=== PATIENT | female | born 1980 | race Caucasian/White ===

== ENCOUNTER 2017-04-16 04:33 | Emergency (ER) | payer OTHER ==
[2017-04-16] MEDS ORDERED: AMOX/CLAV 875 MG/125 MG TABLET PO STA (04:42)
[2017-04-16] MEDS ORDERED: IBUPROFEN 600 MG TABLET PO STA (04:42)
--- NOTE | 2017-04-16 04:47 | ED Physician Documentation ---
PD HPI ANIMAL BITE - Stated complaint Stated Complaint: RT ARM,RT WRIST,RT SHOULDER PAIN - Chief complaint Chief Complaint: Laceration - History obtained from History obtained from: Patient - History of Present Illness Location of injury(ies): Abdomen, RUE, LUE, LLE, Multiple Details of the event: Dog, Well appearing, Immunized, Provoked, Animal can be observed Timing - onset: How many hours ago Timing - details: Abrupt onset Improved by: Immobilization Contributing factors: No: Immunocompromised Similar symptoms before: Has not had sx before Recently seen: Not recently seen - Additional information Additional information: Patient is a 36 year old female with no significant past medical history who is presenting to the emergency department after being bit by her dog. Their older dog attacked the puppy, and in trying to break up the fight the patient was bit/ scratched multiple times. the older dog is up to date with his shots, but the puppy has not been vaccinated. Review of Systems Constitutional: denies: Fever, Chills Eyes: denies: Loss of vision Ears: denies: Ear pain, Drainage/discharge Nose: denies: Rhinorrhea / runny nose, Congestion Throat: denies: Dental pain / toothache, Oral lesions / sores GI: denies: Nausea, Vomiting Skin: reports: Rash, Abrasion (s), Laceration (s) Musculoskeletal: reports: Extremity pain, Extremity swelling Neurologic: denies: Generalized weakness, Focal weakness, Numbness Immunocompromised: denies: Immunocompromised PD PAST MEDICAL HISTORY - Present Medications Home Medications: Ambulatory Orders Medication Instructions Recorded Confirmed Amox/Clav 875/125 [Augmentin] 1 each PO Q12H #14 tablet 04/16/17 - Allergies Allergies/Adverse Reactions: Allergies Allergy/AdvReac Type Severity Reaction Status Date / Time Sulfa (Sulfonamide AdvReac Rash Verified 04/16/17 04:45 Antibiotics) PD ED PE NORMAL - Vitals Vital signs reviewed: Yes - General General: Alert and oriented X 3 - HEENT HEENT: Atraumatic, PERRL, Moist mucous membranes - Neck Neck: Supple, no meningeal sign - Cardiac Cardiac: RRR, No murmur, No rub - Respiratory Respiratory: No respiratory distress, Clear bilaterally - Abdomen Abdomen: Soft, Non tender, Non distended - Neuro Neuro: Alert and oriented X 3, 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, No motor deficit, No sensory deficit, Normal speech - Psych Psych: Normal mood, Normal affect PD ED PE EXPANDED - Derm Derm: Abrasion (s), Laceration(s) (multiple scratch fry on patient's abdomen, and bilateral upper extremiteis with a puncture wound on rue ) Results - Vitals Vitals: Vital Signs - 24 hr 04/16/17 04:40 Temperature 36.6 C Heart Rate 114 H Respiratory 19 Rate Blood Pressure 148/104 H O2 Saturation 98 Oxygen O2 Source Room air PD MEDICAL DECISION MAKING - ED course Complexity details: reviewed old records, re-evaluated patient, considered differential, d/w patient, d/w family ED course: Patient was seen and examined at bedside. patient;s wounds were cleaned and patient was treated with augmentin and ibuprofen. both dogs were known and could be observed. patient required no further work up at this time and was stable for discharge with outpatient follow up. Departure - Departure Disposition: 01 Home, Self Care Clinical Impression: Dog bite of arm Condition: Good Instructions: ED Bite Dog Follow-Up: Guerrero Gant ARNP [Primary Care Provider] - As Needed Prescriptions: Amox/Clav 875/125 [Augmentin] 1 each PO Q12H #14 tablet Comments: Your symptoms today are being caused by a dog bite. You had your first dose of antibiotics today and will need to take them for the next 7 days. You should make sure you keep the wounds clean and dry. You should monitor for signs of infection and follow up with your pmd for those signs. You can take motrin or tylenol as needed for pain. You can also apply ice to the wounds as needed. You may return to the emergency department at any time for new, worsening or ucnontrollable symptoms.
[2017-04-16] MEDS ORDERED: AMOX/CLAV 875 MG/125 MG TABLET PO ONE (04:50)
[2017-04-16] MEDS ORDERED: IBUPROFEN 600 MG TABLET PO ONE (04:50)
[2017-04-16 04:52] VITALS: BP 148/104
== END 2017-04-16 05:15 | disposition home or self-care (01) ==
LOC: ED 04:33
DX: S61.551A Open bite of right wrist, initial encounter (principal); S41.151A Open bite of right upper arm, initial encounter; W54.0XXA Bitten by dog, initial encounter
CPT/HCPCS: 99283; A9270

== ENCOUNTER 2023-06-28 14:36 | Outpatient (CLI) | payer OTHER ==
--- NOTE | 2023-06-28 15:14 | Sleep Patient Instructions ---
Sleep Center Visit Summary - Patient Visit Information Reason for Visit: Initial consult for evaluation of sleep disordered breathing and other sleep issues. - Patient Instructions Instructions Attached: Sleep Study Home Monitor Additional Instructions: You will be completing a sleep study, either an in-lab polysomnography (PSG) or home sleep study (HST). You will follow-up in the sleep care office after the sleep study is completed to hear the results and talk about therapy, if needed. You will be called by our office staff to schedule this appointment, but you may contact us with any questions. - Clinic Information Contact: formerly [facility] [address] [place] [address] [email or web address] T: [phone]
--- NOTE | 2023-06-28 15:20 | SLEEP CARE CONSULTATION ---
Information from patient questionnaire entered by Mahi Romero. I have reviewed and concur with the information entered by Mahi Romero. This document represents the service I personally performed and the decisions made by me, Dottie Azul ARNP. History of Present Illness Service Date and Time: 06/28/2023 1436 Reason for Visit: New patient Chief Complaint: reports: Snoring, Other (DOCTOR SUGGESTED DUE TO WBC ) Date of Onset: 6 MONTHS Usual bedtime: 9PM Time it takes to fall asleep: LESS THAN 30MIN Snores at night: Yes Observed to quit breathing while asleep: No Sleeps alone due to snoring: No Number of times waking at night: 1 Reasons for waking at night: reports: Other (DOGS TYPICALLY). denies: Choking, Snoring, Gasping for air Toss, Turn, or Twitch while sleeping: Yes Recalls having dreams: Yes Usually gets out of bed at: 430-5AM Feels refreshed in the morning: Yes Morning headache: No (hx of migraines but not in morning) Sleepy or fatigued during the day: No Ever fallen asleep while driving: No Takes day naps: No Dreams during day naps: No Prior sleep studies: No Additional HPI information: I had the pleasure of seeing WILMA AVALOS today regarding the possibility of her having a sleep disorder. Her current complaint is an elevation in WBC as seen by doctor. She saw a hemotologist who told her that her elevated WBC could indicate that she has sleep apnea. She was then referred here. She has snored since she was little but no one has told her she stops breathing at night. She has been told her snore is loud. She states she has no problem falling asleep at night and will usually sleep through the night. If she wakes up, it is her dogs wanting to be let out of house. She states she wakes up feeling refreshed most days. She has good energy throughout the day and does not take naps. She states naps throw off her sleeping schedule. She has a history of diabetes, well controlled with A1c at 6.9. - Parasomnia Symptoms Ever been unable to move upon waking from sleep: No Walks in sleep: No Talks in sleep: No Ever acted out dreams in sleep: No Ever felt weak in the knees when startled or emotional: No Bothered by creepy, crawly, restless sensations in legs: Yes (happening for couple years; leg aching sensation; at night) Problems with memory or concentration: Yes (both, seems to be getting worse) Subjective Initial [place] Sleepiness Scale score: 8 (06/28/23) Past Medical History Past Medical History: reports: Diabetes, GERD Social History The patient's occupation is a [employer]. Patient is and lives in [place]. Have you smoked in the past 12 months: Yes Cigarettes per day (20/pack): 10 Years of smokin Smoking Pack Years: 10.0 Alcohol use: No Caffeine use: Yes Caffeine amount and frequency: 24OZ DAILY Family History Family history of sleep disordered breathing: No Family Hx Sleep Apnea: Father: Snoring Allergies and Home Medications Known drug allergies: Yes (sulfa antibx) Drug allergies reviewed: Yes Home medication list reviewed: Yes (see updated list in EMR) Allergy and home medication list: Allergies Sulfa (Sulfonamide Antibiotics) Adverse Reaction (Verified 06/27/23 14:16) Krista Review of Systems Weight gain over past 5 years: 20 Cardiovascular: denies: high blood pressure Respiratory: denies: shortness of breath Gastrointestinal: reports: heartburn Neurological: reports: headaches (occasional migraines) Psychiatric: denies: anxiety, depression Ear/Nose/Throat: denies: tonsillectomy Endocrine: denies: thyroid disease Immunologic: reports: sneezing, allergies to food or environment (seasonal allergies) Physical Exam Vital signs obtained and entered by: MAHI Milton MA Blood Pressure: 142/80 (LEFT ARM) Cuff size: long Heart Rate: 78 O2 Saturation: 97 Height: 5 ft 2 in Weight: 276 lb 12.8 oz Body Mass Index: 50.6 BMI Classification: Morbidly Obese Neck circumference: 17.5 Mouth and throat: narrow oropharynx Soft palate: long Hard palate: normal Uvula: normal Uvula visualization: 25% Mallampati Class III Tongue: enlarged in size with teeth fry on lateral edges Tonsils: 1+ Neck: normal w/o lymphadenopathy or thyromegaly Heart: regular rate and rhythm Lungs: clear bilaterally Impression and Plan 1. Suspected Obstructive Sleep Apnea-Hypopnea Syndrome, as suggested by a history of loud and irregular snoring and cognitive impairment. Narrow orophary nx and obesity are common predisposing factors for obstructive sleep apnea- hypopnea syndrome. I recommend proceeding to polysomnography to confirm the diagnosis and to assess severity. If the patient has significant sleep disordered breathing, a manual CPAP titration study will also be performed to find the optimal treatment pressure. I informed the patient of what the sleep studies involve and after some discussion, obtained agreement to proceed. The pathophysiology of obstructive sleep apnea-hypopnea syndrome was discussed with the patient and health risks of cardiovascular and cerebrovascular disease if not treated. 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 Patient agreed to plan. * Schedule polysomnography. * Avoid long distance driving or driving when feeling sleepy. * Avoid alcohol, sedative and muscle relaxant around bedtime. * Attempt to lose weight. * Review instructions provided by trained office staff on how to prepare for the sleep study. * Return for follow-up after sleep study completed. Counseling Topics: Weight loss health impact Visit Type: In Office Provider Statement: I spent 100% of the Face to Face Visit with the patient with greater than 50% spent counseling the patient and coordination of care.
[2023-06-28 15:28] VITALS: BP 142/80
== END 2023-06-28 14:37 | disposition home or self-care (01) ==
LOC: SC 14:36
PROVIDERS: ATTEND Nurse Practitioner Family
DX: R06.83 Snoring (principal); E11.9 Type 2 diabetes mellitus without complications; E66.01 Morbid (severe) obesity due to excess calories; Z68.43 Body mass index [BMI] 50.0-59.9, adult; F17.210 Nicotine dependence, cigarettes, uncomplicated
CPT/HCPCS: 99203; 99212

== ENCOUNTER 2023-08-21 14:25 | Outpatient (CLI) | payer OTHER | END 2023-08-21 14:26 | disposition home or self-care (01) | LOC: SC 14:25 | PROVIDERS: ATTEND Nurse Practitioner Family | DX: G47.33 Obstructive sleep apnea (adult) (pediatric) (principal); R09.02 Hypoxemia; E66.01 Morbid (severe) obesity due to excess calories; Z68.43 Body mass index [BMI] 50.0-59.9, adult | CPT/HCPCS: 95806 ==

== ENCOUNTER 2023-09-17 09:32 | Outpatient (CLI) | payer OTHER ==
--- NOTE | 2023-09-17 09:11 | SLEEP CARE CONSULTATION ---
Information from patient questionnaire entered by Mahi Romero. I have reviewed and concur with the information entered by Mahi Romero. This document represents the service I personally performed and the decisions made by , Dottie Azul ARNP. History of Present Illness Service Date and Time: 09/17/2023 0900 Initial [place] Sleepiness Scale score: 8 (06/28/23) Current [place] Sleepiness Scale score: 6 Additional HPI information: WILMA AVALOS returns via video telehealth visit for follow up and results of the recently performed home sleep study. The sleep study showed mild obstructive sleep apnea with an average AHI of 12 and marisol oxygen saturation of 85%. I explained the pathophysiology behind obstructive sleep apnea. We then spent quite a bit of time discussing different treatment options. For mild obstructive sleep apnea, surgery and oral appliance are alternatives to nasal CPAP therapy but in moderate or severe cases, nasal CPAP is the most effective and reliable treatment. I reviewed the impact of weight changes on sleep apnea and strongly recommended losing weight. After some discussion, the patient opted to go with the nasal CPAP therapy. Nasal autoCPAP set at 4-15 cmH20 will be ordered with rationale explained. A manual titration study will be ordered if unable to find optimal pressure with office adjustments. I explained how CPAP machine works and what to expect when using the machine. Using CPAP every night in order to get used to it was emphasized. Patient advised to put CPAP mask on before getting into bed so as not to fall asleep without CPAP. To assist acclimation to CPAP use, it could also be used for a short time during day while reading or watching TV. The patient was instructed to call the CPAP supplier to discuss any mechanical problem that may occur. If the mask given is uncomfortable or is difficult to keep on through the night even with adjustment, contact the CPAP supplier as many will replace with another mask style if notified before 30 days. If snoring or perceives is not getting enough air or too much air from the machine, notify this office. Patient does not drink alcohol. Patient was cautioned about risks of drowsy driving until sleepiness symptoms resolve. Patient denies drowsy driving. Sleep Study - Results Type of Sleep Study: Home sleep study (COMPLETED 08/21/23) Prior sleep studies: No Polysomnography/Home Sleep Study results: Physician Impression: The quality of the study is good. The length of the study is adequate (> 240 minutes). Please also see the tabulated and graphic data. 1. Obstructive Sleep Apnea-Hypopnea (ICD-10 G47.33), mild, with an AHI of 12.0 /hr and marisol SaO2 of 85%. During the study, the patient had 48 apneas (48 obstructive, 0 central, 0 mixed) and 34 hypopneas. The longest episode lasted 73.0 seconds. The respiratory events occurred more frequently during supine sleep (supine AHI was 33.3 and non-supine, 11.77). 2. Hypoxemia (ICD-10 R09.02), mild, with the lowest oxygen saturation of 85 % and 3.3 minutes with SaO2 under 90%. Baseline oxygen saturation was normal (Average oxygen saturation was 94%). Allergies and Home Medications Known drug allergies: Yes (as listed) Drug allergies reviewed: Yes Home medication list reviewed: Yes (Trulicity incrased to 1.5 mg) Allergy and home medication list: Allergies Sulfa (Sulfonamide Antibiotics) Adverse Reaction (Verified 09/16/23 08:59) Hives Review of Systems Review of systems same as previous: Yes (no changes) Physical Exam Vital signs obtained and entered by: DOTTIE HAAS Height: 5 ft 2 in Weight: 260 lb (per pt) Body Mass Index: 47.5 BMI Classification: Morbidly Obese Impression and Plan 1. Obstructive Sleep Apnea-Hypopnea Syndrome, mild, with lowest oxygen saturati on of 85%. Obviously this is the cause of the patients symptoms of unrefreshed sleep, and excessive daytime sleepiness. Positive pressure therapy could benefit diabetes and gastric reflux. As mentioned above, the patient will be started on nasal autoCPAP therapy with pressure set at 4-15 cmH2O. Compliance guidelines also reviewed. A copy of compliance guidelines will be given for reference at check out. Because the apnea is more severe supine, I instructed to avoid sleeping supine using pillow positioning until able to start CPAP use. 2. Hypoxemia, mild, with a marisol oxygen saturation of 85% and 3.3 minutes spent under 90%. Her baseline oxygen saturation was normal with an average oxygen saturation of 94%. 3. Obesity, unspecified. Currently patients BMI is 47.5. Obesity increases the risk of apnea, CPAP pressure requirements and overall health risks especially cardiovascular and diabetes. Thus patient is advised to lose weight. * Nasal auto CPAP therapy, pressure at 4-15 cm H2O. * Attempt to lose weight. * Avoid alcohol consumption near bedtime. * Avoid supine sleep until using CPAP. * The patient is again cautioned about driving until sleepiness completely resolves. * Return one month after CPAP obtained. I will assess response to therapy and compliance at that time. Counseling Topics: Sleeping position, Weight loss health impact Prescriptions: Auto CPAP Visit Type: Telehealth Video Video Type: Doximity Patient Location: Work Location of Provider: Office Patient agrees and consents to this telehealth visit type: Yes Patient agrees to have their insurance billed: Yes Time Spent with Patient (minutes): 20 Provider Statement: I spent 100% of the Telehealth Video Call with the patient with greater than 50% spent counseling the patient and coordination of care.
== END 2023-09-17 09:33 | disposition home or self-care (01) ==
LOC: SC 09:32
PROVIDERS: ATTEND Nurse Practitioner Family
DX: G47.33 Obstructive sleep apnea (adult) (pediatric) (principal); R09.02 Hypoxemia; E66.01 Morbid (severe) obesity due to excess calories; Z68.42 Body mass index [BMI] 45.0-49.9, adult

== ENCOUNTER 2024-02-06 07:55 | Emergency (ER) | payer OTHER ==
[2024-02-06 08:37] LABS: BASOPHILS % (AUTO) 0.3 %; EOSINOPHILS # (AUTO) 0.2 10^3/uL (0.0-0.7); EOSINOPHILS % (AUTO) 1.5 %; HCT - HEMATOCRIT 45.3 % (37.0-47.0); HGB - HEMOGLOBIN 13.9 g/dL (12.0-16.0); LYMPHOCYTES # (AUTO) 1.9 10^3/uL (1.5-3.5); LYMPHOCYTES % (AUTO) 13.7 %; MEAN CORPUSCULAR HEMOGLOBIN 26.8 pg (27.0-31.0); MEAN CORPUSCULAR HGB CONC 30.7 g/dL (32.0-36.0); MEAN CORPUSCULAR VOLUME 87.3 fL (81.0-99.0); MEAN PLATELET VOLUME 11.7 fL (7.9-10.8); MONOCYTES # (AUTO) 0.5 10^3/uL (0.0-1.0); MONOCYTES % (AUTO) 3.8 %; NEUTROPHILS % (AUTO) 80.3 %; PLT - PLATELET COUNT 303 10^3/uL (130-450); RED BLOOD COUNT 5.19 10^6/uL (4.20-5.40); RED CELL DISTRIBUTION WIDTH 14.3 % (12.0-15.0); WHITE BLOOD COUNT 13.7 x10^3/uL (4.8-10.8)
[2024-02-06 08:52] LABS: ALBUMIN 4.3 g/dL (3.2-5.5); ALBUMIN/GLOBULIN RATIO 1.5 (1.0-2.2); BILIRUBIN,TOTAL 0.3 mg/dL (0.2-1.0); CREATININE 0.7 mg/dL (0.6-1.3); POTASSIUM 4.6 mmol/L (3.5-4.5); TOTAL PROTEIN 7.2 g/dL (6.4-8.9)
[2024-02-06 09:23] VITALS: O2SAT 97
--- NOTE | 2024-02-06 11:05 | ED Physician Documentation ---
PD HPI ABD PAIN - Stated complaint Stated Complaint: Abd pain - Chief complaint Chief Complaint: Abd Pain - History obtained from History obtained from: Patient - Additional information Additional information: Pt comes to the ED with CC of epigastric pain radiating into her chest that started today. She states it is an achy, squeezy pain. No SOB, nausea, diaphoresis, or lightheadedness. She has not been ill with anything lately. Occasional heartburn/indigestion. No other complaints at this time. The pt is a diabetic and also has hypertension. No prior episodes like this. Max pain 06/03, somewhat better now. 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 : None HEENT: None Psych: None Musculoskeletal: None Derm: None - Past Surgical History Past Surgical History: Yes General: Appendectomy /LUNCHEONETTE MANAGER: section - Present Medications Home Medications: Ambulatory Orders Medication Instructions Recorded Confirmed Cholecalciferol [Vitamin D3] 5,000 unit PO DAILY 11/13/22 02/06/24 Pantoprazole [Protonix] 40 mg PO DAILY 11/13/22 02/06/24 Propranolol [Inderal] 80 mg PO DAILY 11/13/22 02/06/24 Cetirizine [ZyrTEC] See Rx Instructions .ROUTE .COMPLEX 06/28/23 02/06/24 Dulaglutide [Trulicity] See Rx Instructions .ROUTE .COMPLEX 06/28/23 02/06/24 - Allergies Allergies/Adverse Reactions: Allergies Allergy/AdvReac Type Severity Reaction Status Date / Time Sulfa (Sulfonamide AdvReac Hives Verified 02/06/24 08:14 Antibiotics) - Social History Does the pt smoke?: Yes Smoking Status: Current every day smoker Does the pt drink ETOH?: No Does the pt have substance abuse?: No - Immunizations Immunizations are current?: No - POLST Patient has POLST: No PD ED PE NORMAL - Vitals Vital signs reviewed: Yes - General General: Alert and oriented X 3, No acute distress, Well developed/nourished - HEENT HEENT: Atraumatic, PERRL, EOMI, Moist mucous membranes - Neck Neck: Supple, no meningeal sign - Cardiac Cardiac: RRR, No murmur - Respiratory Respiratory: No respiratory distress, Clear bilaterally - Abdomen Abdomen: Soft, Non distended, Other (Mild epigastric tenderness.) - Derm Derm: Normal color, Warm and dry, No rash - Extremities Extremities: No deformity, No edema, No calf tenderness / cord - Neuro Neuro: Alert and oriented X 3 - Psych Psych: Normal mood, Normal affect Results - Vitals Vitals: Oxygen O2 Source Room air - EKG (time done) 0823 EKG releavant findings:: EKG personally interpreted by author of this note. Relevant findings are: Rate: Rate (enter#) (70) Rhythm: NSR Dawson: Normal Intervals: Normal [place] QRS: Normal Ischemia: Normal ST segments Compare to prior EKG: Old EKG unavailable Computer interpretation: Agree with computer - Labs Labs: Laboratory Tests 02/06/24 02/06/24 02/06/24 08:33 08:33 08:33 WBC 13.7 H RBC 5.19 Hgb 13.9 Hct 45.3 MCV 87.3 MCH 26.8 L MCHC 30.7 L RDW 14.3 Plt Count 303 MPV 11.7 H Neut # (Auto) 11.0 H Lymph # (Auto) 1.9 Pershing # (Auto) 0.5 Eos # (Auto) 0.2 Baso # (Auto) 0.0 Absolute Nucleated RBC 0.00 Nucleated RBC % 0.0 Sodium 135 Potassium 4.6 H Chloride 103 Carbon Dioxide 27 Anion Gap 5.0 L BUN 18 Creatinine 0.7 Estimated GFR (MDRD) 91 Glucose 139 H Calcium 10.0 Total Bilirubin 0.3 AST 13 ALT 21 Alkaline Phosphatase 78 Troponin I High Sens < 2.3 L Total Protein 7.2 Albumin 4.3 Globulin 2.9 Albumin/Globulin Ratio 1.5 Lipase 15 02/06/24 10:24 WBC RBC Hgb Hct MCV MCH MCHC RDW Plt Count MPV Neut # (Auto) Lymph # (Auto) Pershing # (Auto) Eos # (Auto) Baso # (Auto) Absolute Nucleated RBC Nucleated RBC % Sodium Potassium Chloride Carbon Dioxide Anion Gap BUN Creatinine Estimated GFR (MDRD) Glucose Calcium Total Bilirubin AST ALT Alkaline Phosphatase Troponin I High Sens < 2.3 L Total Protein Albumin Globulin Albumin/Globulin Ratio Lipase PD Medical Decision Making - ED course Complexity details: reviewed results, re-evaluated patient, considered differential, d/w patient ED course: The pt was worked up with EKG, which normal, and labs, which were unremarkable, including serial troponins. The pt was feeling better, and I felt she was stable for d/c home. No emergent condition was identified today. I have advised her to call her PCP's office as soon as possible to set up a follow-up appointment to discuss stress test. Departure - Departure Disposition: Home, Self Care Clinical Impression: Abdominal pain Qualifiers: Abdominal location: upper abdomen, unspecified Qualified Code(s): R10.10 - Upper abdominal pain, unspecified Chest pain Qualifiers: Chest pain type: unspecified Qualified Code(s): R07.9 - Chest pain, unspecified Condition: Stable Instructions: ED Abdominal Pain Female Non-Specific Abdominal Pain, ED Chest Pain Atypical Unkn Cause Comments: Your tests look great today, including EKG, basic labs, and 2 sets of cardiac enzymes. There is no evidence whatsoever of a heart attack at this time. As we discussed, diabetes does put you at some increased risk for this, but, and it may be helpful to follow-up with your primary doctor for discussion about having a possible stress test. You should also talk to your doctor about potentially having endoscopy to get a direct look at your esophagus and stomach and see if there is any inflammation or preulcer condition. Please continue your Protonix as usual. If you develop severe chest pain with shortness of breath, sweating and nausea, please return to the emergency department. Forms: PCP List Discharge Date/Time: 02/06/24 11:11
[2024-02-06 11:20] VITALS: BP 148/60
== END 2024-02-06 11:11 | disposition home or self-care (01) ==
LOC: ED 07:55
DX: R10.13 Epigastric pain (principal); R07.9 Chest pain, unspecified; I10 Essential (primary) hypertension; E11.9 Type 2 diabetes mellitus without complications; Z79.85 Long-term (current) use of injectable non-insulin antidiabetic drugs; F17.200 Nicotine dependence, unspecified, uncomplicated
CPT/HCPCS: 36415; 80053; 83690; 84484; 85025; 93005; 99283

== ENCOUNTER 2024-06-03 20:58 | Emergency (ER) | payer OTHER ==
[2024-06-03 21:09] VITALS: O2SAT 100
[2024-06-03 21:26] LABS: BASOPHILS # (AUTO) 0.1 10^3/uL (0.0-0.1); BASOPHILS % (AUTO) 0.4 %; EOSINOPHILS # (AUTO) 0.4 10^3/uL (0.0-0.7); EOSINOPHILS % (AUTO) 2.1 %; HCT - HEMATOCRIT 42.4 % (37.0-47.0); HGB - HEMOGLOBIN 12.8 g/dL (12.0-16.0); LYMPHOCYTES # (AUTO) 3.3 10^3/uL (1.5-3.5); LYMPHOCYTES % (AUTO) 19.6 %; MEAN CORPUSCULAR HEMOGLOBIN 26.8 pg (27.0-31.0); MEAN CORPUSCULAR HGB CONC 30.2 g/dL (32.0-36.0); MEAN CORPUSCULAR VOLUME 88.9 fL (81.0-99.0); MEAN PLATELET VOLUME 12.3 fL (7.9-10.8); MONOCYTES # (AUTO) 0.8 10^3/uL (0.0-1.0); MONOCYTES % (AUTO) 4.9 %; NEUTROPHILS # (AUTO) 12.2 10^3/uL (1.5-6.6); NEUTROPHILS % (AUTO) 72.5 %; PLT - PLATELET COUNT 289 10^3/uL (130-450); RED BLOOD COUNT 4.77 10^6/uL (4.20-5.40); RED CELL DISTRIBUTION WIDTH 14.8 % (12.0-15.0); WHITE BLOOD COUNT 16.9 x10^3/uL (4.8-10.8)
[2024-06-03 21:41] LABS: ALBUMIN 4.4 g/dL (3.2-5.5); ALBUMIN/GLOBULIN RATIO 1.4 (1.0-2.2); BILIRUBIN,TOTAL 0.3 mg/dL (0.2-1.0); CALCIUM 9.9 mg/dL (8.5-10.3); CREATININE 0.8 mg/dL (0.6-1.3); POTASSIUM 4.2 mmol/L (3.5-4.5); TOTAL PROTEIN 7.5 g/dL (6.4-8.9)
--- NOTE | 2024-06-03 22:07 | ED Physician Documentation ---
PD HPI ABD PAIN - Stated complaint Stated Complaint: ABD PX - Chief complaint Chief Complaint: Abd Pain - History obtained from History obtained from: Patient - Additional information Additional information: HPI from patient. Patient complains of abdominal pain, across the upper abdomen and then predominantly epigastric, radiates around right flank to back. Pain began approximately 6 PM this evening shortly after finishing her dinner. She has had very similar episodes over the past 2 to 3 months. She says she has seen her PCP but due to PCP leaving and waiting for her new PCP to evaluate her, no testing has been undertaken as of yet for this pain. Denies nausea, vomiting, fever. No past surgical history. Review of Systems Constitutional: denies: Fever, Chills, Sweats Cardiac: reports: Reviewed and negative Respiratory: reports: Reviewed and negative GI: reports: Abdominal Pain. denies: Nausea, Vomiting, Constipation, Diarrhea : denies: Dysuria, Frequency PD PAST MEDICAL HISTORY - Past Medical History Past Medical History: Yes Cardiovascular: Hypertension Respiratory: Asthma Neuro: None Endocrine/Autoimmune: None GI: None FOUNDER AND PRESIDENT: None : None HEENT: None Psych: None Musculoskeletal: None Derm: None - Past Surgical History Past Surgical History: Yes General: Appendectomy /FOUNDER AND PRESIDENT: section - Present Medications Home Medications: Ambulatory Orders Medication Instructions Recorded Confirmed Cholecalciferol [Vitamin D3] 5,000 unit PO DAILY 11/13/22 02/06/24 Pantoprazole [Protonix] 40 mg PO DAILY 11/13/22 02/06/24 Propranolol [Inderal] 80 mg PO DAILY 11/13/22 02/06/24 Dulaglutide [Trulicity] See Rx Instructions .ROUTE .COMPLEX 06/28/23 02/06/24 Loratadine [Claritin] 10 mg PO DAILY 06/03/24 Ondansetron Odt [Zofran Odt] 4 mg TL Q6H PRN #14 tablet 06/04/24 Oxycodone HCl/Acetaminophen 1 - 2 each PO Q6H PRN #14 tablet 06/04/24 [Percocet 5-325 mg Tablet] - Allergies Allergies/Adverse Reactions: Allergies Allergy/AdvReac Type Severity Reaction Status Date / Time Sulfa (Sulfonamide AdvReac Hives Verified 06/03/24 21:09 Antibiotics) - Social History Does the pt smoke?: Yes Smoking Status: Current every day smoker Does the pt drink ETOH?: No Does the pt have substance abuse?: No - Immunizations Immunizations are current?: No - POLST Patient has POLST: No PD ED PE NORMAL - Vitals Vital signs reviewed: Yes - General General: Alert and oriented X 3, No acute distress, Well developed/nourished - Cardiac Cardiac: RRR, No murmur - Respiratory Respiratory: No respiratory distress, Clear bilaterally - Abdomen Abdomen: Soft, Non distended, Other (mild TTP across upper abdomen, most pronounced in epigastrium; no rebound nor guarding) - Derm Derm: Normal color, Warm and dry, No rash Results - Vitals Vitals: Vital Signs - 24 hr 06/03/24 06/03/24 06/04/24 21:00 23:08 00:55 Temperature 36.1 C L 36.5 C 36.5 C Heart Rate 77 70 72 Respiratory 15 16 16 Rate Blood Pressure 167/85 H 150/80 H 156/79 H O2 Saturation 100 100 100 Oxygen O2 Source Room air - Labs Labs: Laboratory Tests 06/03/24 06/03/24 06/03/24 21:00 21:00 21:20 WBC 16.9 H RBC 4.77 Hgb 12.8 Hct 42.4 MCV 88.9 MCH 26.8 L MCHC 30.2 L RDW 14.8 Plt Count 289 MPV 12.3 H Neut # (Auto) 12.2 H Lymph # (Auto) 3.3 Rankin # (Auto) 0.8 Eos # (Auto) 0.4 Baso # (Auto) 0.1 Absolute Nucleated RBC 0.00 Nucleated RBC % 0.0 Sodium Potassium Chloride Carbon Dioxide Anion Gap BUN Creatinine Estimated GFR (MDRD) Glucose Calcium Total Bilirubin AST ALT Alkaline Phosphatase Total Protein Albumin Globulin Albumin/Globulin Ratio Lipase Urine Color YELLOW Urine Clarity CLEAR Urine pH 6.0 Ur Specific [place] 1.025 Urine Protein NEGATIVE Urine Glucose (UA) NEGATIVE Urine Ketones 15 H Urine Occult Blood SMALL H Urine Nitrite NEGATIVE Urine Bilirubin NEGATIVE Urine Urobilinogen 1 (NORMAL) Ur Leukocyte Esterase NEGATIVE Urine RBC 0-5 Urine WBC 0-3 Ur Squamous Epith Cells FEW Squamous Urine Bacteria Rare Ur Microscopic Review INDICATED Urine Culture Comments NOT INDICATED Urine HCG, Qual NEGATIVE 06/03/24 21:20 WBC RBC Hgb Hct MCV MCH MCHC RDW Plt Count MPV Neut # (Auto) Lymph # (Auto) Rankin # (Auto) Eos # (Auto) Baso # (Auto) Absolute Nucleated RBC Nucleated RBC % Sodium 136 Potassium 4.2 Chloride 103 Carbon Dioxide 27 Anion Gap 6.0 BUN 19 Creatinine 0.8 Estimated GFR (MDRD) 78 L Glucose 142 H Calcium 9.9 Total Bilirubin 0.3 AST 17 ALT 22 Alkaline Phosphatase 85 Total Protein 7.5 Albumin 4.4 Globulin 3.1 Albumin/Globulin Ratio 1.4 Lipase 30 Urine Color Urine Clarity Urine pH Ur Specific [place] Urine Protein Urine Glucose (UA) Urine Ketones Urine Occult Blood Urine Nitrite Urine Bilirubin Urine Urobilinogen Ur Leukocyte Esterase Urine RBC Urine WBC Ur Squamous Epith Cells Urine Bacteria Ur Microscopic Review Urine Culture Comments Urine HCG, Qual - Rads (name of study) RUQ US Relevant Findings:: Prelim report reviewed, See rad report PD Medical Decision Making - ED course Complexity details: reviewed results, re-evaluated patient, considered differential, d/w patient ED course: Leukocytosis (WBC 16.9) on otherwise unremarkable CBC. Normal ER abdominal panel, including LFTs and lipase, with insignificant exception of hyperglycemia (glucose 142). H&P are suggestive of biliary colic, my bedside ultrasound shows 2 gallstones and a confirmatory ultrasound is undertaken by the middle school science teacher; the radiologist's interpretation of the records technician's study is "cholelithiasis with wall thickening, but absent pericholecystic fluid. Findings are equivocal for acute cholecystitis." Results d/w patient, return precautions reviewed. I advised her to seek follow up with general surgery (contact information for the on-call surgeon for [facility] (Dr. Chapa) provided in d/c instructions). Patient declined analgesics throughout ED stay, but agrees with prescriptions for percocet and ondansetron (these are electronically submitted to patient's pharmacy of choice). Departure - Departure Disposition: 01 Home, Self Care Clinical Impression: Biliary colic Condition: Good Instructions: ED Gallstone W Biliary Colic Follow-Up: Desiree Chapa MD [Provider Admit Priv/Credential] - Prescriptions: Oxycodone HCl/Acetaminophen [Percocet 5-325 mg Tablet] 1 - 2 each PO Q6H PRN #14 tablet PRN Reason: pain Ondansetron Odt [Zofran Odt] 4 mg TL Q6H PRN #14 tablet PRN Reason: Nausea / Vomiting Comments: The ultrasound shows that you have gallstones; this is what is causing your upper abdominal pain. As we discussed, you need to follow-up with a general surgeon to discuss options for definitive treatment (i.e. surgery). I have electronically submitted prescriptions for Percocet (narcotic/opiate pain medication) and ondansetron (antinausea medication) to the [facility] pharmacy in [place]. I am prescribing a short course of narcotic pain medication for you. These are potentially dangerous and addictive medications that should be used carefully. These medications may constipate you. Take an hidb-gvc-tjgxjct stool softener (docusate) twice daily with plenty of water while taking these medications. If you go 24 hours without a bowel movement, take shcd-pvi-ebemmgj miralax, per package instructions. Do not drink or drive while taking these medications. If you received narcotic or sedating medications while in the emergency department, do not drive for 24 hours. Store this medication in a safe, secure place and out of reach of children. It is a violation of federal law to give or sell this medication to another person or to use in a manner other than prescribed. The ED will not refill narcotic prescriptions, including prescriptions lost or stolen. To dispose of unwanted medications: 1. [facility] at [address] in [place] has a medication drop box. They accept prescription medications (in pill form) Saturday through Saturday 9:00 a.m. to 5:00 p.m. 2. [facility] accepts prescription medications (in pill form only) for disposal year round. Call for more information. 3. Contact the [facility] for the next [facility] sponsored prescription drug collection event. , [phone], or [phone]; Discharge Date/Time: 06/04/24 00:55
[2024-06-03 22:10] LABS: BILIRUBIN,URINE NEGATIVE (NEGATIVE); GLUCOSE, URINE (UA) NEGATIVE (NEGATIVE); KETONES,URINE (UA) 15 mg/dL (NEGATIVE); LEUKOCYTE ESTERASE, URINE NEGATIVE (NEGATIVE); NITRITE,URINE NEGATIVE (NEGATIVE); OCCULT BLOOD,URINE SMALL (NEGATIVE); PROTEIN,URINE NEGATIVE (NEGATIVE); UROBILINOGEN,URINE 1 (NORMAL) E.U./dL (NORMAL)
[2024-06-03 22:11] LABS: CLARITY,URINE CLEAR (CLEAR)
[2024-06-03 22:26] LABS: BACTERIA,URINE Rare /HPF (None Seen); RBC,URINE 0-5 /HPF (0-5); SQUAMOUS EPITHELIAL CELL,UR FEW Squamous (<= Few); WBC,URINE 0-3 /HPF (0-5)
[2024-06-03 22:27] LABS: HCG UR QUAL NEGATIVE
[2024-06-04 01:20] VITALS: BP 156/79
--- NOTE | 2024-06-04 02:18 | Ultrasound Report ---
PROCEDURE: Abdomen Limited INDICATIONS: abd. pain TECHNIQUE: Real-time focused scanning was performed of the abdomen, with image documentation. COMPARISONS: None. FINDINGS: Liver: Liver is mildly enlarged measuring up to 19.0 cm with coarse echotexture. Main portal vein is patent with normal hepatopedal flow. Gallbladder: Cholelithiasis. Mild to moderate gallbladder wall thickening measuring up to 3.9 mm. No pericholecystic fluid. Sonographic Hernandez's sign not reported. Biliary ducts: Intrahepatic bile ducts are non-dilated. Extrahepatic bile duct caliber measures 5.6 mm. Normal is 6-7 mm or less in diameter, or 10 mm or less post-cholecystectomy. Pancreas: Visualized portions of the pancreas are sonographically normal. Right kidney: Normal in size and echotexture. Right kidney measures 13.0 cm long. No hydronephrosis or nephrolithiasis. No solid masses. No complex renal cystic lesions which require follow-up. IVC: Intrahepatic inferior vena cava is patent. Miscellaneous: No free abdominal fluid. IMPRESSION: Cholelithiasis with wall thickening, but absent pericholecystic fluid. Findings are equivocal for acu te cholecystitis. Hepatomegaly. Reviewed by: Estela Gonzalez MD, PhD on 06/04/2024 2:16 AM PDT Approved by: Estela Gonzalez MD, PhD on 06/04/2024 2:16 AM PDT Station ID: [id number]
== END 2024-06-04 00:55 | disposition home or self-care (01) ==
LOC: ED 20:58
DX: K80.20 Calculus of gallbladder without cholecystitis without obstruction (principal); I10 Essential (primary) hypertension; J45.909 Unspecified asthma, uncomplicated
CPT/HCPCS: 36415; 80053; 81001; 81003; 81025; 83690; 85025; 87086; 99284

== ENCOUNTER 2024-08-03 16:12 | Emergency (ER) | payer OTHER ==
--- NOTE | 2024-08-03 16:31 | ED Physician Documentation ---
History of Present Illness - Stated complaint Stated Complaint: LT FOOT LAC - Chief complaint Chief Complaint: Ext Problem - Additonal information Additional information: Patient is a 43-year-old female presenting to the emergency department with left foot pain and swelling. Patient notes she recently had a pedicure performed to her left foot and a few days later had worsening pain to her left great toe. Patient is a type II diabetic sag-yfklxee-lyccqqifg. She notes no previous injuries or surgeries to her feet. Patient notes mild discharge and significant tenderness to the left great toe. PD PAST MEDICAL HISTORY - Past Medical History Past Medical History: Yes Cardiovascular: Hypertension Respiratory: Asthma Neuro: None Endocrine/Autoimmune: None GI: None SERVICE WORKER: None : None HEENT: None Psych: None Musculoskeletal: None Derm: None - Past Surgical History Past Surgical History: Yes General: Appendectomy /SERVICE WORKER: section - Present Medications Home Medications: Ambulatory Orders Medication Instructions Recorded Confirmed Cholecalciferol [Vitamin D3] 5,000 unit PO DAILY 11/13/22 02/06/24 Pantoprazole [Protonix] 40 mg PO DAILY 11/13/22 02/06/24 Propranolol [Inderal] 80 mg PO DAILY 11/13/22 02/06/24 Dulaglutide [Trulicity] See Rx Instructions .ROUTE .COMPLEX 06/28/23 02/06/24 Loratadine [Claritin] 10 mg PO DAILY 06/03/24 Ondansetron Odt [Zofran Odt] 4 mg TL Q6H PRN #14 tablet 06/04/24 Oxycodone HCl/Acetaminophen 1 - 2 each PO Q6H PRN #14 tablet 06/04/24 [Percocet 5-325 mg Tablet] Doxycycline [Vibramycin] 100 mg PO BID #14 tablet 08/03/24 - Allergies Allergies/Adverse Reactions: Allergies Allergy/AdvReac Type Severity Reaction Status Date / Time Sulfa (Sulfonamide AdvReac Hives Verified 08/03/24 16:23 Antibiotics) - Social History Does the pt smoke?: Yes Smoking Status: Current every day smoker Does the pt drink ETOH?: No Does the pt have substance abuse?: No - Immunizations Immunizations are current?: No - POLST Patient has POLST: No PD ED PE NORMAL - Vitals Vital signs reviewed: Yes - General General: Alert and oriented X 3 - HEENT HEENT: Atraumatic - Neck Neck: Supple, no meningeal sign - Cardiac Cardiac: RRR, No murmur, No gallop, No rub - Respiratory Respiratory: No respiratory distress, Clear bilaterally - Abdomen Abdomen: Normal bowel sounds, Non tender - Female Female : Deferred - Back Back: No CVA TTP - Derm Derm: Normal color, Other - Neuro Neuro: Alert and oriented X 3 Eye Opening: Spontaneous Motor: Obeys Commands Verbal: Oriented GCS Score: 15 - Free text exam Free text exam: Left great toe shows mild erythema with significant tenderness on examination area of erythema surrounding paronychia region of left great toe around the toenail. There is minimal discharge from the region. No area of pain discharge or swelling along plantar region of great toe. No other digits affected. No significant foot swelling or pretibial swelling. DP and PT pulses 2+. Full range of motion of digits 1 through 5 intact. Results - Vitals Vitals: Vital Signs - 24 hr 08/03/24 16:20 Temperature 36.6 C Heart Rate 72 Respiratory 20 Rate Blood Pressure 153/106 H O2 Saturation 99 Oxygen O2 Source Room air Procedures - Abscess I&D (location) left great hallux Preparation: Lidocaine 2% Incision: Other Other: Pt tolerated well, Dressing applied, Antibiotic prescribed PD Medical Decision Making - ED course Complexity details: reviewed old records, reviewed results, re-evaluated patient ED course: Patient is a 43-year-old female presenting to the emergency department with left great toe pain. Patient symptoms started over the weekend after she had a pedicure on Saturday. She notes persistent pain swelling difficulty walking on it. She notes no fevers or chills. Given significant pain she came to the emergency department. Swelling noted to left great toe on examination with significant tenderness full range of motion noted. No significant tenderness or fluctuance over plantar region of left great toe. Good capillary refill. Mild erythema noted to left great toe with minimal discharge. Pulses DP and PT 2+. Wound had lidocaine applied topically and a stab incision made see procedure note above patient tolerated well. She is updated on her tetanus here in emergency department. Instructed patient to follow-up with podiatry and she was given the referral number for them. She was also instructed to wear orthopedic shoe and keep wound clean dry started patient on antibiotics given unable to fully drain area. Patient understands and is agreeable with this plan. She will return with any worsening pain swelling numbness tingling worsening discharge or streaking up the leg. Departure - Departure Disposition: 01 Home, Self Care Clinical Impression: Paronychia of great toe, left Condition: Good Follow-Up: JOJO JORDAN DPM [Physician No Access] - Prescriptions: Doxycycline [Vibramycin] 100 mg PO BID #14 tablet Comments: You were seen here in the emergency department for your left great toe pain. Your workup here showed paronychia to your left great toe given you follow-up with podiatry after wound was incised and drained here and have started you on oral antibiotics you can put topical antibiotics from drug-zqz-qitifhs as well on it. Change the wound tomorrow. Wear postop shoe and try to keep it elevated. You can take Tylenol and ibuprofen for your symptoms. Return to the emergency department with any new or worsening symptoms including redness streaking up your leg severe pain discoloration to your wound or fevers.Antibiotics were sent to pharmacy in [place] Forms: PCP List
[2024-08-03] MEDS: LIDOCAINE VISCOUS 2% 15 ML UDC MM STA (16:44)
[2024-08-03] MEDS: TETANUS/DIPHTHERIA/PERTUSSIS 0.5 ML SYRINGE IM ONE (16:51)
[2024-08-03 18:13] VITALS: BP 157/113; O2SAT 100
--- NOTE | 2024-08-10 11:51 | ED Physician Documentation ---
ED Addendum - Addendum Addendum: 08/10/24 11:50 Culture reviewed, based on the culture and description in the H&P I do not think the antibiotics need to be changed.
== END 2024-08-03 18:07 | disposition home or self-care (01) ==
LOC: ED 16:12
DX: L03.032 Cellulitis of left toe (principal); E11.9 Type 2 diabetes mellitus without complications; F17.200 Nicotine dependence, unspecified, uncomplicated
CPT/HCPCS: 10060; 90471